=== PATIENT | female | born 1990 ===

== ENCOUNTER 2022-04-25 02:31 | Emergency (ER) | payer SELFPAY ==
[2022-04-25] MEDS ORDERED: SODIUM CHLORIDE 0.9% 1000 ML 1,000 ML IV ONE ×2 (06:40→09:38)
[2022-04-25 07:30] LABS: Basophils # (Auto) 0.1 K/mm3 (0.0-0.1); Basophils % (Auto) 0.8 % (0.0-1.8); Eosinophils # (Auto) 0.4 K/mm3 (0.0-0.4); Eosinophils % (Auto) 5.1 % (0.0-4.3); Hematocrit 37.9 % (30.3-42.9); Hemoglobin 12.8 gm/dl (10.1-14.3); Lymphocytes # (Auto) 2.6 K/mm3 (1.2-5.4); Lymphocytes % (Auto) 37.2 % (13.4-35.0); Mean Corpuscular HGB Conc 34 % (30-34); Mean Corpuscular Volume 89 fl (79-97); Monocytes # (Auto) 0.4 K/mm3 (0.0-0.8); Monocytes % (Auto) 6.2 % (0.0-7.3); Platelet Count 271 K/mm3 (140-440); Red Blood Count 4.27 M/mm3 (3.65-5.03); Red Cell Distribution Width 14.2 % (13.2-15.2)
--- NOTE | 2022-04-25 07:31 | Emergency Department Report ---
ED Psych HPI - General Chief Complaint: Psych Stated Complaint: SUICIDAL IDEATION Time Seen by Provider: 04/25/22 06:14 Source: patient Mode of arrival: Ambulatory Limitations: No Limitations - History of Present Illness Initial Comments: 31-year-old female presents to the hospital acute alcohol intoxication. Patient is a dog pound attendant. She was in accompaniment drinking alcohol which she expressed suicidal ideation. Patient tells me she has been suicidal x1 month. No previous history of depression or psychiatric diagnoses. She does not have a plan. She denies any physical complaints at this time - Related Data Allergies Allergy/AdvReac Type Severity Reaction Status Date / Time Penicillins Allergy Intermediate Shortness Verified 04/25/22 10:46 of Breath ED Review of Systems ROS: Stated complaint: SUICIDAL IDEATION Other details as noted in HPI Comment: All other systems reviewed and negative ED Physical Exam - General Limitations: No Limitations - Other Other exam information: General: No acute distress Head: Atraumatic Eyes: normal appearance ENT: Moist mucous membranes Neck: Normal appearance, no midline tenderness Chest: Clear to auscultation bilaterally CV: Regular rate and rhythm Abdomen: Soft, normal bowel sounds, nontender, nondistended, no rebound or guarding Back: Normal inspection Extremity: Normal inspection, full range of motion Neuro: Drowsy but easily arousable, intoxicated O x 3, no facial asymmetry, speech clear, no gross motor sensory deficit Psych: Appropriate behavior Skin: No rash ED Course Vital Signs 04/25/22 04/25/22 04/25/22 04:31 06:22 07:04 Temperature 98.2 F Pulse Rate 88 81 Respiratory 18 16 Rate Blood Pressure 94/52 106/48 [Right] O2 Sat by Pulse 97 99 Oximetry 04/25/22 10:57 Temperature Pulse Rate Respiratory 14 Rate Blood Pressure [Right] O2 Sat by Pulse 99 Oximetry ED Medical Decision Making - Lab Data Result diagrams: 04/25/22 07:15 04/25/22 07:15 Lab Results 04/25/22 04/25/22 04/25/22 Range/Units 07:15 07:15 07:15 WBC 7.1 (4.5-11.0) K/mm3 RBC 4.27 (3.65-5.03) M/mm3 Hgb 12.8 (10.1-14.3) gm/dl Hct 37.9 (30.3-42.9) % MCV 89 (79-97) fl MCH 30 (28-32) pg MCHC 34 (30-34) % RDW 14.2 (13.2-15.2) % Plt Count 271 (140-440) K/mm3 Lymph % (Auto) 37.2 H (13.4-35.0) % [place] % (Auto) 6.2 (0.0-7.3) % Eos % (Auto) 5.1 H (0.0-4.3) % Baso % (Auto) 0.8 (0.0-1.8) % Lymph # (Auto) 2.6 (1.2-5.4) K/mm3 [place] # (Auto) 0.4 (0.0-0.8) K/mm3 Eos # (Auto) 0.4 (0.0-0.4) K/mm3 Baso # (Auto) 0.1 (0.0-0.1) K/mm3 Seg Neutrophils % 50.7 (40.0-70.0) % Seg Neutrophils # 3.6 (1.8-7.7) K/mm3 Sodium 140 (137-145) mmol/L Potassium 3.9 (3.6-5.0) mmol/L Chloride 109.3 H (98-107) mmol/L Carbon Dioxide 22 (22-30) mmol/L Anion Gap 13 mmol/L BUN 8 (7-17) mg/dL Creatinine 0.6 (0.6-1.2) mg/dL Estimated GFR > 60 ml/min BUN/Creatinine Ratio 13 % Glucose 86 (65-100) mg/dL Calcium 8.2 L (8.4-10.2) mg/dL HCG, Qual (Negative) Salicylates < 0.3 L (2.8-20.0) mg/dL Acetaminophen (10.0-30.0) ug/mL Plasma/Serum Alcohol (0-0.07) % 04/25/22 04/25/22 04/25/22 Range/Units 07:15 07:15 07:15 WBC (4.5-11.0) K/mm3 RBC (3.65-5.03) M/mm3 Hgb (10.1-14.3) gm/dl Hct (30.3-42.9) % MCV (79-97) fl MCH (28-32) pg MCHC (30-34) % RDW (13.2-15.2) % Plt Count (140-440) K/mm3 Lymph % (Auto) (13.4-35.0) % [place] % (Auto) (0.0-7.3) % Eos % (Auto) (0.0-4.3) % Baso % (Auto) (0.0-1.8) % Lymph # (Auto) (1.2-5.4) K/mm3 [place] # (Auto) (0.0-0.8) K/mm3 Eos # (Auto) (0.0-0.4) K/mm3 Baso # (Auto) (0.0-0.1) K/mm3 Seg Neutrophils % (40.0-70.0) % Seg Neutrophils # (1.8-7.7) K/mm3 Sodium (137-145) mmol/L Potassium (3.6-5.0) mmol/L Chloride (98-107) mmol/L Carbon Dioxide (22-30) mmol/L Anion Gap mmol/L BUN (7-17) mg/dL Creatinine (0.6-1.2) mg/dL Estimated GFR ml/min BUN/Creatinine Ratio % Glucose (65-100) mg/dL Calcium (8.4-10.2) mg/dL HCG, Qual Negative (Negative) Salicylates (2.8-20.0) mg/dL Acetaminophen 5.0 L (10.0-30.0) ug/mL Plasma/Serum Alcohol 0.11 H (0-0.07) % - Medical Decision Making 31-year-old female on a 1013 for suicidal ideation acute alcohol intoxication. Pending psychiatric assessment and possible placement. Critical Care Time: No Critical care attestation.: If time is entered above; I have spent that time in minutes in the direct care of this critically ill patient, excluding procedure time. ED Disposition Clinical Impression: Acute alcohol intoxication, Suicidal ideation, Medical clearance for psychiatric admission Disposition: [address] [place] [address] Is pt being admited?: No Condition: Stable
[2022-04-25 07:49] LABS: BUN/Creatinine Ratio 13; Blood Urea Nitrogen 8 mg/dL (7-17); Calcium 8.2 mg/dL (8.4-10.2); Hemolysis Index 14
[2022-04-25 11:20] LABS: Bilirubin,Urine NEG (Negative); Blood,Urine NEG (Negative); Color,Urine Yellow (Yellow); Mucus,Urine FEW /HPF; Protein,Urine <15 mg/dL mg/dL (Negative); Urobilinogen,Urine < 2.0 mg/dL (<2.0); WBC,Urine < 1.0 /HPF (0.0-6.0)
[2022-04-25 11:26] LABS: Amphetamine Screen,Urine Negative; Benzodiazepines Screen,Urine Negative; Cannabinoid Screen,Urine Negative; Cocaine Screen,Urine Negative; Methadone Screen,Urine Negative; Opiate Screen,Urine Negative
[2022-04-25 13:40] VITALS: BP 115/59
--- NOTE | 2022-04-25 14:06 | Consultation ---
History of Present Illness - Reason for Consult Consult date: 04/25/22 Reason for consult: depression - History of Present Psychiatric Illness The patient was seen today. She presented to the hospital for SI after drinking. The patient says she relapsed on alcohol after being sober for about a year. She says she lost her best friend in January and then her uncle last month. She says she's been intending to go to therapy but never started. The patient denies SI/HI. She says "last night I felt like that, but I wouldn't do anything to myself." The patient says "I have a daughter. I can't even think of what that would do to her." She denies hallucinations of any kind. The patient says she doesn't really feel depressed at present but at times feels like that. I re commended the patient starting on an antidepressant but she says she only wants therapy at the moment and may consider medication later. The patient says she doesn't sleep well and would like something for sleep. I also discussed with the patient the benefit of journaling and on-going therapy, since she states she has a hard time communicating her emotions. Will start Trazodone to improve sleep an d recommend the patient follow up with outpatient. PAST PSYCHIATRIC HISTORY: Diagnoses: Denies Suicide attempts or Self-harm behavior: Denies Prior psychiatric hospitalizations: Denies Substance Abuse history: Denies Previous psychiatric medications tried: Denies Outpatient treatment: Denies PAST MEDICAL HISTORY: None reported or document Family Psychiatric History: None reported or documented SOCIAL HISTORY Marital Status: single Living Arrangements: with family Employment Status: Employed Access to guns/weapons: Denies Education: high school grad History of Abuse: Denies Legal History: Denies REVIEW OF SYSTEMS Constitutional: Negative for weight loss ENT: Negative for stridor Respiratory: Negative for cough or hemoptysis All other systems reviewed and are negative MENTAL STATUS EXAMINATION General Appearance and Behavior: Age appropriate, wearing appropriate clothes, cooperative, polite with questioning, good eye contact, pleasant Cooperation: cooperative Psychomotor Behavior: Psychomotor normal Mood: better Affect and affective range: Congruent with stated mood Thought Process: goal directed Thought Content: None Speech: Normal volume, Regular rate and rhythm Suicidal Ideation: Denies Homicidal Ideation: Denies Hallucination: Denies Delusions: None elicited Impulse Control: Limited Insight and Judgment: Limited Memory: limited Attention:attentive Orientation: Alert and oriented Diagnoses: Major Depressive Disorder Treatment Plan d/c 1013 Trazodone 50mg po qhs PSYCHOTHERAPY: Supportive psychotherapy provided MEDICAL: Per primary team DELIRIUM PRECAUTIONS: Please re-orient patient frequently, keep lights on during the day, and minimize benzodiazepines and opiates as these medications could worsen patient's confusion. PRINTER ASSISTANT: Per medical team DISPOSITION: Do not Recommend acute psychiatric inpatient treatment. The patient understands that if SI/HI arise she is to seek immediate assistance The ware server to further discuss safety plan The patient to follow up with outpatient psychiatrist in 7 to 14 days upon discharge Will sign off. Thank you for the consult. Case staffed with Dr. Duncan Medications and Allergies Allergies Allergy/AdvReac Type Severity Reaction Status Date / Time Penicillins Allergy Intermediate Shortness Verified 04/25/22 10:46 of Breath Mental Status Exam - Vital signs Last Vital Signs Temp 98.2 F 04/25/22 06:22 Pulse 90 04/25/22 13:28 Resp 14 04/25/22 13:28 BP 115/59 04/25/22 13:28 Pulse Ox 98 04/25/22 13:28 Results Result Diagrams: 04/25/22 07:15 04/25/22 07:15 Abnormal lab results 04/25/22 04/25/22 04/25/22 Range/Units 07:15 07:15 07:15 Lymph % (Auto) 37.2 H (13.4-35.0) % Eos % (Auto) 5.1 H (0.0-4.3) % Chloride 109.3 H (98-107) mmol/L Calcium 8.2 L (8.4-10.2) mg/dL Salicylates < 0.3 L (2.8-20.0) mg/dL Acetaminophen (10.0-30.0) ug/mL Plasma/Serum Alcohol (0-0.07) % 04/25/22 04/25/22 Range/Units 07:15 07:15 Lymph % (Auto) (13.4-35.0) % Eos % (Auto) (0.0-4.3) % Chloride (98-107) mmol/L Calcium (8.4-10.2) mg/dL Salicylates (2.8-20.0) mg/dL Acetaminophen 5.0 L (10.0-30.0) ug/mL Plasma/Serum Alcohol 0.11 H (0-0.07) % All other labs normal.
== END 2022-04-25 15:50 | disposition home or self-care (01) ==
LOC: ED 02:31 → EEVIPCON 02:31 → ED 15:50
DX: Z04.6 Encounter for general psychiatric examination, requested by authority (principal); R45.851 Suicidal ideations; F10.129 Alcohol abuse with intoxication, unspecified; Z79.899 Other long term (current) drug therapy; Y90.9 Presence of alcohol in blood, level not specified
CPT/HCPCS: 36415; 80048; 80307; 81001; 84703; 85025; 96360; 96361; 99284; J7030; 80320; G0480